=== PATIENT | male | born 1985 | race Caucasian/White ===

== ENCOUNTER 2023-03-13 03:24 | Observation (INO) | payer OTHER, SELFPAY ==
[2023-03-13] VITALS (15 sets, daily range): BP systolic 138–186; BP diastolic 77–109; PULSE 50–84; RESP 11–19; TEMP 36.3–37; O2SAT 91–100; BMI 41.1
--- NOTE | 2023-03-13 | GALL_PTH ---
PATIENT: DAYANNA EVANGELISTA LOC: MS3 U#:[id number] AGE/SX: 37/M ROOM: [facility] RE03/13/[address]: Dr. Avel Yang MD : 1985 BED: 1 DIS: 03/14/2023 SPEC #: [id number] RECD: 03/13/23 14:32 STATUS: CAMERON CONROY #: [id number] IMELDA: 03/13/23 00:[address]: Avel Yang DEPT: SURGICAL PATHOLOGY RECD BY: Rodolfo Shaikh ENTERED: 03/14/23 08:46 SP TYPE: BRANDY EVERETT DR: Dr. Ursula Monaco MD Tissues: Gallbladder, NOS Procedures: Surgery Specimen Level III HEADER OPERATION: Laparoscopic cholecystectomy with IOC PRE-OP DIAGNOSIS: Acute cholecystitis TISSUE SUBMITTED: Gallbladder MICROSCOPIC DIAGNOSIS Gallbladder, cholecystectomy: Acute and chronic cholecystitis, cholesterolosis, and cholethiasis. SJ: 03/15/2023 MICROSCOPIC DESCRIPTION Slides are reviewed. GROSS DESCRIPTION Received is one container labeled with the patient's name and designated gallbladder. The specimen consists of a gallbladder measuring 10 cm in length and up to 4cm in diameter. The external surface is pink-santizo, smooth and glistening for the most part. Focally it is granular, hemorrhagic and contains cautery artifact. The gallbladder contains santizo turbid mucoid bile and contain two stones measuring 0.7 and 1.0 greatest dimension. The mucosa is bile-stained and without any mass lesions. The mucosa also shows several yellowish streaks consistent with cholesterolosis. The gallbladder wall measures up to 0.3 cm in thickness. Aviation Program Manager sections from the gallbladder and the cystic duct are submitted in one cassette. / SJ: TC:2 CPT: 71233
--- NOTE | 2023-03-13 03:49 | CT_ITS ---
EXAM: CT ABDOMEN AND PELVIS WITH INTRAVENOUS CONTRAST CLINICAL INDICATION: abd pain TECHNIQUE: Helically acquired images were obtained of the abdomen and pelvis with intravenous contrast. This CT exam was performed using one or more of the following dose reduction techniques: automated exposure control, adjustment of the mA and/or kV according to patient size, and/or use of iterative reconstruction technique. CONTRAST: IV 100mL Isovue-370 COMPARISON: No relevant prior studies available. FINDINGS: LOWER THORAX: Unremarkable. Lung bases are clear. No cardiomegaly. No significant pericardial effusion. ABDOMEN: LIVER: Unremarkable. Homogeneous. No focal mass. GALLBLADDER AND BILE DUCTS: Mild prominence of the gallbladder with faint adjacent stranding suggested in the gallbladder fossa. No calcified gallstones. No gallbladder distention or wall edema. PANCREAS: Unremarkable. No focal cystic or solid mass. No inflammation around the pancreas. SPLEEN: Unremarkable. Normal size without focal cystic or solid mass. ADRENALS: Unremarkable. No nodules. KIDNEYS AND URETERS: Unremarkable. Normal renal size and position. No urinary stone or renal obstruction. STOMACH AND BOWEL: Unremarkable. No stomach or bowel distention. No focal inflammatory change. PELVIS: APPENDIX: The appendix is normal. BLADDER: Unremarkable. REPRODUCTIVE: Unremarkable as visualized. No mass. ABDOMEN and PELVIS: INTRAPERITONEAL SPACE: Unremarkable. No ascites or other fluid collection. No free air. BONES/JOINTS: Unremarkable. No suspicious lytic or blastic abnormality. SOFT TISSUES: Unremarkable. No discrete abdominal or pelvic wall hernia. VASCULATURE: Unremarkable. Abdominal aorta is non-dilated. LYMPH NODES: Unremarkable. No enlarged lymph nodes. CT/Abdomen/Pelvis W IV Cont ONLY IMPRESSION: Mild prominence of the gallbladder with faint adjacent stranding suggested in the gallbladder fossa. Consider ultrasound for further evaluation. Electronically Signed: Jovan Layton MD at 4:44 EDT ,
--- NOTE | 2023-03-13 03:53 | EX.ED.DYSGE1 ---
HPI History of Present Illness Chief Complaint: Chest Pain Informant: patient and spouse/S.O. Narrative Narrative: Patient is a 37-year-old male with past medical history of hypothyroidism currently on Synthroid. He states he went to bed normally and then awoke roughly 1 hour ago with sharp midepigastric abdominal pain. He states the pain is made him nauseous without vomiting. He denies any loose stool or diarrhea associated with this. He denies any fevers or chills. He states that the pain is more intense than anything he has been used to and secondary to this comes in for evaluation. He states the pain stays in his upper abdomen and denies any radiation [facility] Medical History Hypothyroidism Home Medications levothyroxine 25 mcg tablet 25 mcg PO DAILY HYPOTHYROID 03/13/23 [History Last Taken Unknown] Allergy/AdvReac Type Severity Reaction Status Date / Time No Known Allergies Allergy Verified 03/13/23 03:38 Social History Smoking Status: Never smoker [facility] ED Constitutional Constitutional ED: Denies chills or fever(s) ENT ENT ED: Denies sore throat Cardiovascular Cardiovascular: Denies chest pain Respiratory/Chest Respiratory/Chest: Denies cough or dyspnea Gastrointestinal Gastrointestinal: Reports abdominal pain and nausea; Denies diarrhea or vomiting Genitourinary Genitourinary ED: Denies dysuria or hematuria Musculoskeletal Musculoskeletal: Denies back pain or myalgias Integumentary Denies rash Neurologic Neurologic: Denies headache(s) Hematologic/Lymphatic Hematologic/Lymphatic: Denies easy bleeding or easy bruising EXAM Physical Exam Const Vital Signs: 03/13/23 03:26 03/13/23 03:31 Temperature 98.6 F Temperature Source Temporal Pulse Rate 84 Respiratory Rate 16 Respiratory Effort Short of Breath Blood Pressure 186/109 H Blood Pressure Mean 134 Pulse Ox 93 Oxygen Delivery Method Room Air Positive well nourished, well developed and obese General Appearance ED: well developed Nutritional Appearance: obese HEENT HEENT Narrative: Normocephalic atraumatic Eyes PERRL and EOMs intact bilaterally General Eye ED: Negative for scleral icterus Neck supple Neck Narrative: Carotid pulses are plus 2 out of 4 bilaterally they are equal and symmetric Resp normal respiratory effort and clear to auscultation bilaterally Cardio regular rate, regular rhythm and no murmurs Rate: other Other Details: Radial pulses are plus 2 out of 4 bilaterally are equal and symmetric GI non-distended GI Narrative: Abdomen is obese soft and nondistended with normal active bowel sounds. Patient has pain with palpation in the midepigastric and right upper quadrant region. There is voluntary guarding at these sites. No fluid wave or pulsatile mass. Auscultation: normoactive bowel sounds Palpation: soft Back/Spine no CVA tenderness Extremity normal to inspection Neuro oriented x3, CN's II-XII intact bilaterally and no sensory deficits noted Sensorium / Orientation: alert Motor Exam: strength 5/5 throughout Psych mental status grossly normal Skin no rashes or lesions noted General Skin Exam: Negative for jaundice MDM MDM MDM Narrative Medical decision making narrative: Patient presented to the ER hypertensive otherwise with stable vitals. He had pain with palpation in the midepigastric and right upper quadrant region with guarding at the site concerning for pancreatitis versus biliary colic. He has minimal risk factors cardiovascular disease but as the pain is located in the upper abdomen/lower chest I did elect to perform an EKG and troponin in order to check for possible acute coronary syndrome. The patient's white count is elevated at 13.7 which could be secondary to stress response but lactic acid is normal at 1.1 and troponin displays a normal value of 4. A CT was obtained and showed potential distention of the gallbladder and an ultrasound was recommended. Therefore the patient was held in the ER and ultrasound was obtained. Ultrasound confirmed gallstones and as patient's been having intractable abdominal pain requiring multiple doses of IV pain medication general surgery was consulted. They evaluated the patient in the ER and do feel he would benefit from a cholecystectomy and therefore will be admitted to the hospital for further care. History & Record Review Discussion w/independent historian: Patient and Significant other Lab Data Attestation: I reviewed the patient's lab results. Labs: Laboratory Results - last 24 hr 03/13/23 03/13/23 03:33 05:31 WBC 13.7 H RBC 5.16 Hgb 15.3 Hct 45.9 MCV 89.0 MCH 29.7 MCHC 33.3 RDW Std Deviation 42.5 RDW Coeff of Marzena 13.1 Plt Count 403 MPV 9.2 Immature Gran % (Auto) 0.300 Neut % (Auto) 52.9 Lymph % (Auto) 34.0 Ray % (Auto) 9.1 Eos % (Auto) 3.2 Baso % (Auto) 0.5 Absolute Neuts (auto) 7.2 Absolute Lymphs (auto) 4.64 H Nucleated RBC % 0 Sodium 140 Potassium 3.8 Chloride 108 H Carbon Dioxide 25.0 Anion Gap 7 BUN 10 Creatinine 0.93 Estim Creat Clear Calc 122.90 Est GFR (MDRD) Af Amer 117 Est GFR (MDRD) Non-Af 96 BUN/Creatinine Ratio 10.7 Glucose 143 H Lactic Acid 1.1 Calcium 8.9 Total Bilirubin 0.20 Direct Bilirubin 0.08 AST 35 ALT 73 H Alkaline Phosphatase 105 Troponin I High Sens 4 Total Protein 7.5 Albumin 3.7 Globulin 3.8 Lipase 45 Radiography Diagnostic Testing: Clinical Impression(s) from Imaging Studies Abdomen/Pelvis CT 03/13/23 03:49 IMPRESSION: Mild prominence of the gallbladder with faint adjacent stranding suggested in the gallbladder fossa. Consider ultrasound for further evaluation. Electronically Signed: Jovan Layton MD at 4:44 EDT Reading Location ID and State: [facility] / [place] Tel , Service support , Gallbladder Ultrasound 03/13/23 05:23 IMPRESSION: 1. Multiple small shadowing stones in the gallbladder with some gallbladder distention. This could indicate early evidence of cholecystitis in the appropriate clinical setting. 2. Hepatomegaly with mild fatty infiltration. Electronically Signed: Jovan Layton MD at 7:52 EDT , Management Discussion w/another healthcare provider: Packager Hand Discharge Plan Triage Chief Complaint: Chest Pain ED Provider: John Uriarte Dx/Rx/DC Orders Clinical Impression: Intractable abdominal pain, Cholelithiasis, Biliary colic Prescriptions: No Action levothyroxine 25 mcg tablet 25 mcg PO DAILY Patient Comments: take 1 tablet by mouth once daily ON AN EMPTY STOMACH for THYROID Primary Care Provider: Ursula Monaco Referrals: Ursula Monaco MD [Primary Care Provider] - Disposition Disposition: [facility]
[2023-03-13 03:56] LABS: Absolute Lymphocyte Count 4.64 X10^3/uL (0.83-4.51); Absolute Neutrophil Count 7.2 X10^3/uL (2.0-7.7); Basophil# 0.07 X10^3/uL; Basophil% 0.5 % (0-1); Eosinophil# 0.44 X10^3/uL; Eosinophils% 3.2 % (0-5); Hematocrit 45.9 % (40-54); Hemoglobin 15.3 g/dL (13.0-16.5); Lymphocyte # 4.64 X10^3/ul (0.83-4.51); Mean Corp Hgb Conc 33.3 g/dL (32-36); Mean Corpuscular Hgb 29.7 pg (27.0-32.0); Mean Platelet Vol. 9.2 fl (6.2-12.0); Monocyte# 1.24 X10^3/uL; Monocyte% 9.1 % (0-10); NRBC Flagged by Analyzer 0 % (0-5); Neutrophil # 7.22 X10^3/uL (2.7-7.7); Neutrophil % 52.9 % (47-70); Platelet Count 403 K/mm3 (150-450); RBC Distribution Width CV 13.1 % (11.6-14.6); RBC Distribution Width SD 42.5 fl (35.1-43.9); Red Blood Count 5.16 M/mm3 (4.6-6.2); White Blood Count 13.7 K/mm3 (4.4-11.0)
[2023-03-13] MEDS: Ondansetron 4 MG/2 ML Vial IV (03:59)
[2023-03-13] MEDS: HYDROmorphone 1 MG/ML Syringe IV ×4 (03:59→09:46)
[2023-03-13] MEDS: 0.9% Normal Saline 1,000 ML 999 ML IV (04:00)
[2023-03-13 04:17] LABS: AST(SGOT) 35 U/L (15-37); Alanine Aminotransfer ALT/SGPT 73 U/L (16-61); Albumin, Serum 3.7 g/dL (3.2-5.0); Alkaline Phosphatase 105 U/L (45-117); Anion Gap 7 (5-15); BUN 10 mg/dL (7-18); BUN/Creat Ratio 10.7 RATIO (10-20); Bilirubin, Direct 0.08 mg/dL (0.00-0.30); Calcium,Total 8.9 mg/dL (8.5-10.1); Chloride 108 mmol/L (98-107); Creatinine, Serum 0.93 mg/dL (0.70-1.30); EST Glomerular Filtration Rate 96 mL/min (>60); Est Glom Filt Rate - Afr Amer 117 mL/min (>60); Globulin 3.8 g/dL (2.2-4.2); Glucose 143 mg/dL (74-106); Lipase 45 U/L (13-75); Potassium 3.8 mmol/L (3.5-5.1); Protein, Total 7.5 g/dL (6.4-8.2); Sodium Level 140 mmol/L (136-145); Troponin-I HS 4 pg/mL (3.0-78.0)
--- NOTE | 2023-03-13 04:34 | EKG12_ITS ---
Test Reason : CP Blood Pressure : / mmHG Vent. Rate : 070 BPM Atrial Rate : 070 BPM P-R Int : 164 ms QRS Dur : 092 ms QT Int : 404 ms P-R-T Axes : 016 012 056 degrees QTc Int : 436 ms Normal sinus rhythm Normal ECG Confirmed by LORENA RUST MD ([id number]), video news editor JOVANI GANDHI ([id number]) on 03/14/2023 11:43:46 AM Referred By: LAINE Confirmed By:LORENA RUST MD
--- NOTE | 2023-03-13 05:23 | US_ITS ---
EXAM: US ABDOMEN LIMITED, RIGHT UPPER QUADRANT CLINICAL INDICATION: pain TECHNIQUE: Real-time ultrasound of the right upper quadrant with image documentation. COMPARISON: CT abdomen and pelvis same date. FINDINGS: LIVER: Hepatomegaly. Some increased echogenicity of the hepatic parenchyma. No intrahepatic biliary ductal dilation. GALLBLADDER: Multiple small shadowing stones in the gallbladder with some gallbladder distention. No gallbladder wall thickening is demonstrated. No pericholecystic fluid. Negative sonographic Knight''s sign. COMMON BILE DUCT: 3 mm. The proximal common bile duct is within normal limits for the patient''s age. PANCREAS: The pancreas is obscured by bowel gas. RIGHT KIDNEY: Unremarkable. There is no hydronephrosis. No shadowing calculus. No focal lesion or perinephric collection is demonstrated. US/Gallbladder IMPRESSION: 1. Multiple small shadowing stones in the gallbladder with some gallbladder distention. This could indicate early evidence of cholecystitis in the appropriate clinical setting. 2. Hepatomegaly with mild fatty infiltration. Electronically Signed: Jovan Layton MD at 7:52 EDT ,
[2023-03-13 06:06] LABS: Lactic Acid 1.1 mmol/L (0.4-1.9)
--- NOTE | 2023-03-13 09:08 | HP.PCM.SX_ITS ---
HPI - General HPI Narrative DAYANNA EVANGELISTA, is a 37 M who presents with upper abdominal pain. He reports the pain started at 3 AM this morning. He did have vomiting on the way to the hospital. He is still in severe pain after pain medication. Patient denies any fevers or chills. [facility] Medical History Hypothyroidism Home Medications levothyroxine 25 mcg tablet 25 mcg PO DAILY HYPOTHYROID 03/13/23 [History Last Taken Unknown] Allergy/AdvReac Type Severity Reaction Status Date / Time No Known Allergies Allergy Verified 03/13/23 03:38 Social History Smoking Status: Never smoker ROS Constitutional Constitutional: Denies anorexia, chills, fatigue or fever(s) Eyes Eyes: Denies blurry vision ENT HEENT: Denies abnormal hearing Cardiovascular Cardiovascular: Denies chest pain Respiratory/Chest Respiratory/Chest: Denies cough or dyspnea Gastrointestinal Gastrointestinal: Reports abdominal pain, nausea and vomiting; Denies change in bowel habits or rectal bleeding Genitourinary Genitourinary: Denies difficulty urinating Musculoskeletal Musculoskeletal: Denies abnormal gait Integumentary Integumentary: Denies new lesions Neurologic Neurologic: Denies abnormal gait Psychiatric Psychiatric: Denies anxiety Endocrine Endocrinology: Denies flushing Hematologic/Lymphatic Hematologic/Lymphatic: Denies easy bleeding Vital Signs Vital Signs Vital Signs: 03/13/23 03:26 03/13/23 03:31 Temperature 98.6 F Temperature Source Temporal Pulse Rate 84 Respiratory Rate 16 Respiratory Effort Short of Breath Blood Pressure 186/109 H Blood Pressure Mean 134 Pulse Ox 93 Oxygen Delivery Method Room Air Weight Weight: 312 lb 2.793 oz Body Mass Index (BMI) 41.1 Physical Exam Const oriented x3 Resp normal respiratory effort Cardio regular rate and regular rhythm GI soft to palpation Palpation: tender RUQ and Knight's sign Extremity normal to inspection Results Lab / Micro Data 03/13/23 03:33 03/13/23 03:33 Labs: Laboratory Results - last 24 hr 03/13/23 03:33: WBC 13.7 H, RBC 5.16, Hgb 15.3, Hct 45.9, MCV 89.0, MCH 29.7, MCHC 33.3, RDW Std Deviation 42.5, RDW Coeff of Marzena 13.1, Plt Count 403, MPV 9.2, Immature Gran % (Auto) 0.300, Neut % (Auto) 52.9, Lymph % (Auto) 34.0, Mariposa % (Auto) 9.1, Eos % (Auto) 3.2, Baso % (Auto) 0.5, Absolute Neuts (auto) 7.2, Absolute Lymphs (auto) 4.64 H, Nucleated RBC % 0, Sodium 140, Potassium 3.8, Chloride 108 H, Carbon Dioxide 25.0, Anion Gap 7, BUN 10, Creatinine 0.93, Estim Creat Clear Calc 122.90, Est GFR (MDRD) Af Amer 117, Est GFR (MDRD) Non-Af 96, BUN/Creatinine Ratio 10.7, Glucose 143 H, Calcium 8.9, Total Bilirubin 0.20, Direct Bilirubin 0.08, AST 35, ALT 73 H, Alkaline Phosphatase 105, Troponin I High Sens 4, Total Protein 7.5, Albumin 3.7, Globulin 3.8, Lipase 45 03/13/23 05:31: Lactic Acid 1.1 Radiology Impression Abdomen/Pelvis CT 03/13/23 03:49 IMPRESSION: Mild prominence of the gallbladder with faint adjacent stranding suggested in the gallbladder fossa. Consider ultrasound for further evaluation. Electronically Signed: Jovan Layton MD at 4:44 EDT Reading Location ID and State: [facility] / [facility] Tel , Service support , Gallbladder Ultrasound 03/13/23 05:23 IMPRESSION: 1. Multiple small shadowing stones in the gallbladder with some gallbladder distention. This could indicate early evidence of cholecystitis in the appropriate clinical setting. 2. Hepatomegaly with mild fatty infiltration. Electronically Signed: Jovan Layton MD at 7:52 EDT , Assessment & Plan Assessment/Plan (1) Acute cholecystitis: PLAN: The patient has an elevated white count and right upper quadrant pain. Ultrasound did reveal multiple stones within the gallbladder. In the acute setting with pain in the right upper quadrant and an elevated white count with gallstones I recommended laparoscopic cholecystectomy. I discussed the procedure in detail with the patient. I discussed the risks, benefits, and alternatives of the procedure. I discussed the risks including but not limited to bleeding, infection, injury to surrounding organs such as the liver, bile duct, bowels. I did discuss the possibility of having to convert to an open procedure as well as the possibility that if any injuries occurred this may n ecessitate further surgery at a tertiary care center. Avel Yang MD Pager: [facility] [address] [place] [address] [address] [place] [address] Office:
[2023-03-13] MEDS: 0.9% Normal Saline 1,000 ML 100 ML IV ×2 (09:46→14:55)
[2023-03-13] MEDS: Ketorolac 15 MG/ML Vial IV (09:46)
--- NOTE | 2023-03-13 12:05 | RAD_ITS ---
STUDY: INTRAOPERATIVE CHOLANGIOGRAM. REASON FOR EXAM: Male, 37 years old. Laparoscopic cholecystectomy. FLUOROSCOPY TIME (if supplied): ( 8.3 seconds ) minutes/seconds. 6.85 mGy TECHNIQUE: An intraoperative glandular was performed by the surgeon. Imaging was obtained. COMPARISON: None. FINDINGS: The intra and extrahepatic biliary ducts are unremarkable. Free flow of contrast into the duodenum. RAD/Cholangiogram/ O R,Initial IMPRESSION: Unremarkable examination. Electronically Signed: Miles Nugent MD at 14:24 EDT ,
[2023-03-13] MEDS: Bupivacaine 0.25% 30 ML Vial (12:55)
--- NOTE | 2023-03-13 13:37 | PCM.OPRPT ---
Report of Operation Date of Procedure: 03/13/23 Pre-Operative Diagnosis: Acute cholecystitis Post-Operative Diagnosis: Acute cholecystitis Surgery/Procedure Performed:: Laparoscopic cholecystectomy with cholangiogram Type of Anesthesia: General/Regional Specimen's removed: Gallbladder Estimated Blood Loss (mL): 20 Description of Procedure: After obtaining informed consent patient was brought back to the operating room. General anesthesia was induced. The abdomen was prepped and draped in usual sterile fashion. A small midline incision was made superior to the umbilicus and deepened to the level of fascia. The fascia was elevated and incised. Next the peritoneum was elevated and incised in the same fashion. Finger sweep was performed and the Francois trocar was placed into the abdomen. The balloon was inflated. The abdomen was inflated to 15 mmHg. Next a camera was introduced into the abdomen and the abdomen was inspected. Next under direct visualization three 5-mm ports were placed one subxiphoid and 2 subcostal. Next the gallbladder was elevated and retracted toward the right shoulder. The peritoneum was stripped from the gallbladder. The infundibulum was located and retracted laterally. Next the triangle of Calot was dissected and the cystic duct and cystic artery were identified. Cholangiograms were performed. The Shah clamp was used to clamp across the infundibulum and the catheter needle was inserted into the gallbladder. Under fluoroscopy contrast was instilled into the gallbladder and the common duct, cystic duct as well as proximal hepatic ducts were identified. There was good filling of the duodenum. There were no filling defects noted in the common bile duct. The clamp was removed as well as the needle and the infundibulum was grasped once more. Three hemolock clips were placed across the cystic duct. The cystic duct was then divided leaving 2 clips on the stump. The cystic artery was clipped and divided in the same fashion. The hook cautery was then used to take the gallbladder off of the gallbladder bed. Hemostasis was obtained. Gallbladder fossa was irrigated and no active bleeding or bile leakage was noted. Next the camera was introduced in the subxiphoid port. An Endopouch bag was placed through the umbilical port and the gallbladder was placed into it. The gallbladder was then removed through the umbilical incision. The camera was then reinserted through the umbilical port. The gallbladder fossa was inspected once more and noted to be hemostatic with no leaking bile. The abdomen was suctioned dry. The 5 mm ports were removed under direct visualization. The umbilical port was then removed and the air was removed from the abdomen. Next using an 0 Vicryl suture the umbilical fascia was closed in a [id number] fashion. The umbilical port site was irrigated local anesthetic was administered to all the incisions. All the incisions were closed with interrupted subcuticular 4-0 Monocryl sutures followed by Steri-Strips and dressings. The patient was awoken and taken to PACU in stable condition. Admit VTE Documentation VTE Mechan Device Prophylaxis: SCD's
--- NOTE | 2023-03-13 15:12 | CPS ---
Pt still not on floor, I.S. & PEP outside room.
[2023-03-13] MEDS: Oxycodone/Apap 5/325 Tablet PO (17:33)
[2023-03-13] MEDS: Acetaminophen 325 MG Tablet 650 MG PO (20:42)
[2023-03-14 00:23] VITALS: BP 140/84; PULSE 69; RESP 16; TEMP 36.7; O2SAT 94
[2023-03-14] MEDS: 0.9% Normal Saline 1,000 ML 100 ML IV (02:00)
[2023-03-14 04:48] VITALS: BP 136/80; PULSE 62; RESP 16; TEMP 36.4; O2SAT 96
--- NOTE | 2023-03-14 08:08 | EX.PCM.DISCH ---
Discharge Instructions Procedure Gallbladder Diet Discharge Diet: Light diet - advance as tolerated Activity Discharge Activity: May Not Drive (for 2-3 days or while taking narcotic pain medications.), May Shower and - (Do not drive, work heavy equipment or sign legal documents for 24 hours.) Lifting Restrictions: 20 lbs for 2 weeks Additional Activity Instructions:: Pain medication may cause nausea. You should typically eat light foods as you take your pain medications. Pain medication may also cause constipation. If this is a problem for you, please discuss with your doctor. Dressing / Incision Call your doctor if your incision/area has: Continuous Slow Oozing, Sudden Increased Bleeding, Increased Pain/ Swelling, Increased Redness and Foul Smelling Discharge Call your doctor if you observe: Fever of 101 or Higher Suture Line Care: Avoid Pulling/Pushing and Avoid Pinching/Bending Remove Dressing in: 2 days Additional Dressing/Incision Instructions:: Leave operative bandaids on for 2 days. When you remove dressing, leave Steri-Strips on until your follow-up appointment, or until the Steri-Strips fall off on their own. Follow Up Care Please Follow Up With: Avel Yang MD When: Please call to schedule 2 week follow up appointment. [phone] Test Results: Test results from this visit will be discussed in further detail at your follow-up appointment, if applicable. Discharge Plan Admission Admit Date/Time: 03/13/23 09:06 Attending Provider: Avel Yang Primary Care Provider: Ursula Monaco Discharge Orders/Prescriptions Prescriptions: New acetaminophen 325 mg Tablet 650 mg PO Q4H PRN PRN (Reason: Pain 1-10 Or Fever) Qty: 0 0RF oxycodone-acetaminophen 5-325 mg Tablet 2 tab PO Q4H PRN PRN (Reason: Pain Score 6-10) 5 Days Qty: 20 0RF Continued levothyroxine 25 mcg tablet 25 mcg PO DAILY Patient Comments: take 1 tablet by mouth once daily ON AN EMPTY STOMACH for THYROID Referrals / Follow Up: Ursula Monaco MD [Primary Care Provider] - Disposition Disposition (needs filled in before D/C Order can be placed): Home, Self Care
--- NOTE | 2023-03-14 08:11 | PCM.PN.SRG ---
Subjective Subjective Patient is doing well this morning. Objective Data Objective Data Vital Signs: Vital Signs Temp Pulse Resp BP Pulse Ox O2 Del Method 97.5 F L 62 16 136/80 H 96 Room Air 03/14/23 04:48 03/14/23 04:48 03/14/23 04:48 03/14/23 04:48 03/14/23 04:48 03/14/23 04:48 Oxygen Delivery Method Room Air Weight: 312 lb 2.793 oz Body Mass Index (BMI) 41.1 Intake & Output: Intake and Output for Last 24 Hours 03/12/23 03/13/23 03/14/23 23:59 23:59 23:59 Intake Total 2049 1350 / 1350 Balance 2049 1350 / 1350 Lab / Micro Data 03/13/23 03:33 03/13/23 03:33 Radiography Diagnostic Testing: Radiology Impression Cholangiogram 03/13/23 12:05 IMPRESSION: Unremarkable examination. Electronically Signed: Miles Nugent MD at 14:24 EDT , Physical Exam Const oriented x3 Resp normal respiratory effort Cardio regular rate and regular rhythm GI soft to palpation Palpation: tender Assessment & Plan Assessment/Plan (1) Acute cholecystitis: PLAN: Patient seems to be doing well. Once he tolerates regular diet this morning I will discharge him home. He will follow-up with me in 2 weeks and discharge instructions have been given. Avel Yang MD Pager: [facility] [address] [place] [address], [address] [place] [address] Office:
[2023-03-14 09:05] VITALS: BP 137/91; PULSE 62; RESP 17; TEMP 36.6; O2SAT 97
[2023-03-14] MEDS: Oxycodone/Apap 5/325 Tablet PO (09:17)
--- NOTE | 2023-03-14 09:22 | NURSING ---
walking in guerra at this time
--- NOTE | 2023-03-14 09:59 | PHA.DC.MC.R ---
Pharmacy [facility] has performed discharge medication reconciliation and counseling for this patient. The patient was counseled on the following discharge medications and changes in medications for homegoing were reviewed. 1. PERCOCET 2. TYLENOL The Reason for Use, instructions for use, and potential side effects were reviewed for all new medications. The patient's questions regarding all of their medications were answered. The patient was able to verbally demonstrate an understanding of their discharge medications. The patient's discharge medication list was reviewed for discrepancies and discrepancies were resolved. Medications at Discharge Home Medications levothyroxine 25 mcg tablet 25 mcg PO DAILY HYPOTHYROID 03/13/23 acetaminophen 325 mg tablet 650 mg (2 x 325 mg) PO Q4H PRN PRN Pain 1-10 Or Fever #0 tabs 03/14/23 oxycodone-acetaminophen 5 mg-325 mg tablet 2 tab PO Q4H PRN PRN Pain Score 6-10 5 days #20 tabs 03/14/23
== END 2023-03-14 12:55 | disposition home or self-care (01) ==
LOC: ED 08:47 → MS3 09:54
PROVIDERS: Admitting Provider Surgery; Emergency Provider Emergency Medicine; PCP Internal Medicine; Visit Provider Surgery
PROC: (CPT 47610; principal; 2023-03-13 12:05)
DX: K80.12 Calculus of gallbladder with acute and chronic cholecystitis without obstruction (principal); E03.9 Hypothyroidism, unspecified; Z79.890 Hormone replacement therapy
CPT/HCPCS: 47563; 00790; 74177; 74300; 76000; 76705; 80048; 80076; 83605; 83690; 84484; 85025; 88304; 93005; 94668; 96361; 96365; 96366; 96375; 96376; 99221; 99252; 99284; J7030; J7120; Q9967; A4216; G0378; G0463; J2310; J2405